=== PATIENT | male | born 1950 | race Caucasian/White ===

== ENCOUNTER 2017-04-26 10:51 | Emergency (ER) | payer MEDICARE, OTHER ==
[~2017-04-26] VITALS: Ht 185.4 cm; Wt 74.4 kg
[2017-04-26 10:54] VITALS: BP 181/91; PULSE 84; RESP 16; TEMP 98.1; O2SAT 97
[2017-04-26] MEDS ORDERED: ZOFR4TAB PO (11:29)
--- NOTE | 2017-04-26 11:40 | PD ---
HPI Chief Complaint: Abdominal Pain Time Seen by Provider: 11:19 Travel History International Travel<30 days: No Contact w/Intl Traveler<30days: No Traveled to known affect area: No History of Present Illness HPI This 66-year-old male is complaining of abdominal pain. He says he been having abdominal pain for the last 3 weeks. It is a mid abdominal pain which may be a little worse on the right side. He says he has had a lot of loss of appetite and has not been eating much. He is not vomiting but he does not eat much. 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 He has been on chemotherapy since then. His last chemotherapy was 3 weeks ago, he is here until Tuesday and then he returned to [facility]. he has an appointment with his oncologist on Tuesday IN [place]. he is not aware of fever or chills. He says he has barely been able to eat anything. The pain is somewhat intermittent. It is aggravated by eating PFSH Past Medical History Cancer: Yes (gallbladder dx 08/2016) Chemotherapy: Yes (last dose 3-4 weeks ago) Implanted Vascular Access Dvce: Yes (left subclaivan) Tetanus Vaccination: < 5 Years Influenza Vaccination: Yes Past Surgical History Cholecystectomy: Yes Social History Alcohol Use: No Tobacco Use: No (hx of cig smoker quit in the s) Substance Use: No Allergies-Medications (Allergen,Severity, Reaction): Coded Allergies: No Known Allergies (Unverified , 04/26/17) Reported Meds & Prescriptions Reported Meds & Active Scripts Active Reported Zofran (Ondansetron HCl) 4 Mg Tab 4 Mg PO Q8HR PRN Review of Systems General / Constitutional: No: Fever, Chills Eyes: No: Diploplia, Blurred Vision HENT: No: Headaches, Vertigo, Rhinorrhea Cardiovascular: No: Chest Pain or Discomfort, Palpitations Respiratory: No: Cough, Shortness of Breath Gastrointestinal: Positive: Nausea, Abdominal Pain, Loss of Appetite Genitourinary: No: Urgency, Frequency Musculoskeletal: No: Myalgias, Arthralgias Skin: No Rash Neurologic: No: Weakness Physical Exam Narrative GENERAL: Well-developed male SKIN: Focused skin assessment warm/dry. HEAD: Atraumatic. Normocephalic. EYES: Pupils equal and round. No scleral icterus. No injection or drainage. ENT: No nasal bleeding or discharge. Mucous membranes pink and moist. NECK: Trachea midline. No JVD. CARDIOVASCULAR: Regular rate and rhythm. No murmur appreciated. RESPIRATORY: No accessory muscle use. Clear to auscultation. Breath sounds equal bilaterally. GASTROINTESTINAL: Abdomen soft, non-tender, nondistended. Hepatic and splenic margins not palpable. MUSCULOSKELETAL: No obvious deformities. No clubbing. No cyanosis. No edema. NEUROLOGICAL: Awake and alert. No obvious cranial nerve deficits. Motor grossly within normal limits. Normal speech. PSYCHIATRIC: Appropriate mood and affect; insight and judgment normal. Data Data Last Documented VS Vital Signs Date Time Temp Pulse Resp B/P (MAP) Pulse Ox O2 Delivery O2 Flow Rate FiO2 04/26/17 11:25 16 04/26/17 10:54 98.1 84 181/91 (121) 97 Orders Orders Urinalysis - C+S If Indicated (04/26/17 11:01) Complete Blood Count With Diff (04/26/17 11:35) Comprehensive Metabolic Panel (04/26/17 11:35) Lipase (04/26/17 11:35) Ct Abd/Pel W Iv Contrast(Rout) (04/26/17 11:35) Sodium Chlor 0.9% 1000 Ml Inj (Ns 1000 M (04/26/17 11:45) Ondansetron Inj (Zofran Inj) (04/26/17 11:45) Iohexol 350 Inj (Omnipaque 350 Inj) (04/26/17 12:32) Potassium Chloride (Kcl) (04/26/17 13:30) Radiology Film Requests (04/26/17 ) Labs Laboratory Tests Test 04/26/17 11:50 04/26/17 12:00 White Blood Count 9.5 TH/MM3 Red Blood Count 3.84 MIL/MM3 Hemoglobin 12.7 GM/DL Hematocrit 37.9 % Mean Corpuscular Volume 98.7 FL Mean Corpuscular Hemoglobin 33.0 PG Mean Corpuscular Hemoglobin Concent 33.5 % Red Cell Distribution Width 15.0 % Platelet Count 225 TH/MM3 Mean Platelet Volume 8.5 FL Neutrophils (%) (Auto) 55.6 % Lymphocytes (%) (Auto) 29.2 % Monocytes (%) (Auto) 14.3 % Eosinophils (%) (Auto) 0.3 % Basophils (%) (Auto) 0.6 % Neutrophils # (Auto) 5.2 TH/MM3 Lymphocytes # (Auto) 2.8 TH/MM3 Monocytes # (Auto) 1.4 TH/MM3 Eosinophils # (Auto) 0.0 TH/MM3 Basophils # (Auto) 0.1 TH/MM3 CBC Comment DIFF FINAL Differential Comment Blood Urea Nitrogen 10 MG/DL Creatinine 1.00 MG/DL Random Glucose 86 MG/DL Total Protein 7.2 GM/DL Albumin 3.2 GM/DL Calcium Level 9.1 MG/DL Alkaline Phosphatase 96 U/L Aspartate Amino Transf (AST/SGOT) 22 U/L Alanine Aminotransferase (ALT/SGPT) 33 U/L Total Bilirubin 1.6 MG/DL Sodium Level 139 MEQ/L Potassium Level 2.7 MEQ/L Chloride Level 105 MEQ/L Carbon Dioxide Level 26.5 MEQ/L Anion Gap 8 MEQ/L Estimat Glomerular Filtration Rate 75 ML/MIN Lipase 225 U/L Urine Collection Type CLEAN CATCH Urine Color YELLOW Urine Turbidity CLEAR Urine pH 6.0 Urine Specific [place] 1.008 Urine Protein NEG mg/dL Urine Glucose (UA) NEG mg/dL Urine Ketones NEG mg/dL Urine Occult Blood TRACE Urine Nitrite NEG Urine Bilirubin NEG Urine Leukocyte Esterase NEG Urine RBC 0-3 /hpf Urine Squamous Epithelial Cells 0-5 /hpf Microscopic Urinalysis Comment CULT NOT INDICATED Urine Collection Time 12:00 [facility] Medical Decision Making Medical Screen Exam Complete: Yes Emergency Medical Condition: Yes Medical Record Reviewed: Yes Differential Diagnosis Differential includes bowel obstruction, metastatic carcinoma, gallbladder cancer, adverse effect of chemotherapy Narrative Course CT scan was done and there is noted to be a area and the head of the pancreas and also some spots in the lung. There is no evidence of bowel obstruction or acute surgical crisis. I believe his pain is most likely secondary to the carcinoma. I will prescribe some Percocet and Zofran. He is returning to [place] this week and will see his oncologist on Tuesday. We will try to provide CT scans to take with him Diagnosis Primary Impression: Carcinoma of gallbladder Additional Instructions: Bananas daily Scripts Ondansetron Odt (Zofran Odt) 4 Mg Tab 4 MG SL Q8HR Y for Nausea/Vomiting, #20 TAB 0 Refills Prov: Valdo Flores MD 11/21/17 Oxycodone-Acetaminophen (Percocet) 7.5-325 mg Tab 1 TAB PO Q4H Y for PAIN, #30 TAB 0 Refills Prov: Valdo Flores MD 04/26/17 Disposition: 01 DISCHARGE HOME Condition: Stable Valdo Flores MD Apr 26, 2017 11:40
[2017-04-26] MEDS ORDERED: ONDANSETRON HCL 4 MG/2 ML VIAL IV PUSH ONE (11:45)
[2017-04-26] MEDS ORDERED: SODIUM CHLOR 0.9% 1000 ML INJ 1,000 ML IV ONE (11:45)
[2017-04-26 12:05] LABS: AUTOMATED NEUTROPHIL # 5.2 TH/MM3 (1.8-7.7); BASOPHIL # 0.1 TH/MM3 (0-0.2); BASOPHIL % 0.6 % (0.0-2.0); EOSINOPHIL % 0.3 % (0.0-4.0); HEMATOCRIT 37.9 % (39.0-51.0); HEMO FLAGS DIFF FINAL; LYMPH % 29.2 % (9.0-44.0); LYMPHOCYTE # 2.8 TH/MM3 (1.0-4.8); MEAN CELL VOLUME 98.7 FL (80.0-100.0); MEAN CORPUSCULAR HGB CONC 33.5 % (32.0-36.0); MONO % 14.3 % (0.0-8.0); NEUT % 55.6 % (16.0-70.0); PLATELET COUNT 225 TH/MM3 (150-450); RED BLOOD COUNT 3.84 MIL/MM3 (4.50-5.90); WHITE BLOOD COUNT 9.5 TH/MM3 (4.0-11.0)
[2017-04-26 12:18] LABS: GLUCOSE,URINE NEG (NEG); KETONE, URINE NEG (NEG); NITRITE,URINE NEG (NEG)
[2017-04-26 12:23] LABS: BLOOD, URINE TRACE (NEG)
[2017-04-26 12:23] LABS: ALKALINE PHOSPHATASE 96 U/L (45-117); ALT (GPT) 33 U/L (12-78); ANION GAP 8 MEQ/L (5-15); AST (GOT) 22 U/L (15-37); BICARBONATE 26.5 MEQ/L (21.0-32.0); BLOOD UREA NITROGEN 10 MG/DL (7-18); CHLORIDE 105 MEQ/L (98-107); GLOMERULAR FILTRATION RATE 75 ML/MIN (>89); SODIUM (NA) 139 MEQ/L (136-145); TOTAL BILIRUBIN ADULT 1.6 MG/DL (0.2-1.0)
[2017-04-26 12:24] LABS: COMMENT (UR) CULT NOT INDICATED; CULTURE IF INDICATED CULT NOT INDICATED; METHOD OF COLLECTION CLEAN CATCH; RBC, URINE 0-3 /hpf (0-3); SQUAMOUS EPITHELIAL CELL URINE 0-5 /hpf (0-5); URINE COLOR YELLOW (YELLW/STRAW)
[2017-04-26 12:26] LABS: POTASSIUM 2.7 MEQ/L (3.5-5.1)
[2017-04-26] MEDS ORDERED: IOHEXOL 350 MG/ML 10 ML VIAL (for RAD DIAG) IVCONTRAST ONE (12:32)
--- NOTE | 2017-04-26 13:20 | RADRPT ---
EXAM DATE/TIME: 04/26/2017 12:24 [facility] COMPARISON: No previous studies available for comparison. INDICATIONS : Mid abdominal pain x 3 weeks. IV CONTRAST: 90 cc Omnipaque 350 (iohexol) IV ORAL CONTRAST: No oral contrast ingested. RADIATION DOSE: 8.27 CTDIvol (mGy) MEDICAL HISTORY : Gallbladder cancer. SURGICAL HISTORY : Cholecystectomy. ENCOUNTER: Initial ACUITY: 3 weeks PAIN SCALE: 5/10 LOCATION: Mid abdomen. TECHNIQUE: Volumetric scanning of the abdomen and pelvis was performed. Using automated exposure control and ad justment of the mA and/or kV according to patient size, radiation dose was kept as low as reasonably achievable to obtain optimal diagnostic quality images. DICOM format image data is available electro nically for review and comparison. FINDINGS: There is a 5 mm nodule in the right lower lobe and the potential cavitary nodule measuring 15 mm in t he right middle lobe. Considering the history of gallbladder carcinoma CT scan of the chest is recomm ended. No pleural effusions are identified. The liver and spleen are normal in size and no focal defects are identified. A metal biliary stent is in place. There is an indeterminate 1.3 cm hypodensity within the head of the pancreas. The adrenal glands and kidneys appear normal bilaterally. No hydronephrosis or mass lesions are identified. No ab normally enlarged lymph nodes are identified. Examination of the pelvis demonstrates no evidence of free fluid or pelvic mass. No abnormally enlarg ed inguinal or retroperitoneal lymph nodes are present. The bladder is unremarkable. CONCLUSION: 1. Cholecystectomy and metallic biliary stent placement without biliary ductal dilatation. 2. Indeterminate nodules in both lung bases. CT scan is recommended for further evaluation if clinica lly indicated. 3. Indeterminate 1.3 severe hypodensity within the head of the pancreas. Paresh Yap MD on April 26, 2017 at 12:38 Board Certified Radiologist. This report was verified electronically.
[2017-04-26] MEDS ORDERED: POTASSIUM CHLORIDE 20 MEQ CONTROLLED RELEASE TAB PO ONE (13:30)
[2017-04-26] MEDS ORDERED: PERC7.5T13 PO (13:33)
[2017-04-26] MEDS ORDERED: ZOFR4TAB3 SL (13:33)
== END 2017-04-26 14:15 | disposition home or self-care (01) ==
LOC: PHED 10:51
DX: C23 Malignant neoplasm of gallbladder (principal)
CPT/HCPCS: 74177; 80053; 81001; 83690; 85025; 96374; 99285; J1642; J2405; J7030; Q9967